=== PATIENT | male | born 1975 | race Caucasian/White ===

== ENCOUNTER 2018-09-15 22:14 | Inpatient (IN) | payer OTHER ==
[~2018-09-15] VITALS: Ht 175.3 cm; Wt 78.9 kg
[2018-09-15] MEDS ORDERED: LEVO125T5 PO (23:09)
--- NOTE | 2018-09-15 23:12 | NUR ---
REPORT TO MAGDALENE CAMP WHO ASSUMED CARE OF PT.
[2018-09-15 23:32] LABS: ALANINE AMINOTRANSFERASE 21 U/L (12-78); ALBUMIN 4.1 g/dL (3.4-5.0); ANION GAP 5 mmol/L (5-15); CALCIUM 8.6 mg/dL (8.5-10.1); CHLORIDE 108 mmol/L (98-107); CREATININE 1.07 mg/dL (0.7-1.3)
[2018-09-15 23:34] LABS: ALKALINE PHOSPHATASE 78 U/L (45-117); BILIRUBIN,TOTAL 0.6 mg/dL (0.2-1.0); TOTAL PROTEIN 7.4 g/dL (6.4-8.2)
[2018-09-15 23:36] LABS: BASOPHILS # (AUTO) 0.02 x10^3/uL (0-0.1); BASOPHILS % (AUTO) 0 % (0-1); EOSINOPHILS # (AUTO) 0.16 x10^3/uL (0-0.4); EOSINOPHILS % (AUTO) 2 % (1-7); LYMPHOCYTES # (AUTO) 2.64 x10^3/uL (1-3.4); LYMPHOCYTES % (AUTO) 37 % (22-44); MD NO; MEAN CORPUSCULAR HEMOGLOBIN 30.2 pg (27.5-34.5); MEAN CORPUSCULAR HGB CONC 33.8 g/dL (33.2-36.2); MEAN CORPUSCULAR VOLUME 89.3 fL (81-97); MEAN PLATELET VOLUME 8.2 fL (7.4-10.4); MONOCYTES # (AUTO) 0.58 x10^3/uL (0.2-0.8); MONOCYTES % (AUTO) 8 % (2-9); NEUTROPHILS # (AUTO) 3.77 x10^3/uL (1.8-6.8); NEUTROPHILS % (AUTO) 53 % (42-75); PLATELET COUNT 244 x10^3/uL (130-400); RED BLOOD COUNT 5.31 x10^6/uL (4.38-5.82); RED CELL DISTRIBUTION WIDTH 13.4 % (9.4-14.8)
--- NOTE | 2018-09-15 23:37 | NUR ---
CT PENDING LAB/CREATINE RESULT.
--- NOTE | 2018-09-15 23:54 | NUR ---
unable to give urine sample at this time.
--- NOTE | 2018-09-15 23:54 | NUR ---
patient to CT scan.
[2018-09-16] MEDS ORDERED: OMNIPAQUE 350 MG/ML, 100ML BOTTLE ONE
[2018-09-16] MEDS ORDERED: CEFOTETAN PMX 1GM/50ML 50 ML ONE (00:48)
[2018-09-16] MEDS ORDERED: CEFOTETAN PMX 1GM/50ML 50 ML IV ONE (01:00)
--- NOTE | 2018-09-16 01:00 | NUR ---
re-evaluation done. patient for surgery. antibiotic started.
[2018-09-16] MEDS ORDERED: BUPIVACAINE/PF-EPI 0.5% 1:200K ONE (01:01)
--- NOTE | 2018-09-16 01:14 | NUR ---
report to [employer].
[2018-09-16] MEDS ORDERED: FENTANYL PF 100 MCG/2ML ONE ×3 (01:18→03:32)
[2018-09-16] MEDS ORDERED: MIDAZOLAM 1 MG/ML, 2ML ONE (01:19)
[2018-09-16] MEDS ORDERED: ONDANSETRON 2MG/ML, 2ML IVPush PRN ×2 (01:30→05:30)
[2018-09-16] MEDS ORDERED: MORPHINE SULFATE 4 MG/ML, 1ML IVPush PRN ×2 (01:30→05:30)
[2018-09-16] MEDS ORDERED: ONDANSETRON 2MG/ML, 2ML ONE (01:37)
[2018-09-16] MEDS ORDERED: DEXAMETHASONE 4 MG/ML, 1ML ONE (01:37)
[2018-09-16] MEDS ORDERED: SUCCINYLCHOLINE 20 MG/ML, 10ML ONE (01:37)
[2018-09-16] MEDS ORDERED: ROCURONIUM 10MG/ML,5ML ONE (01:37)
[2018-09-16] MEDS ORDERED: PROPOFOL 10 MG/ML, 20ML ONE (01:37)
[2018-09-16] MEDS ORDERED: LORazepam 2 MG/ML, 1ML IVPush PRN (02:00)
[2018-09-16] MEDS ORDERED: HYDROmorphone 2 MG/ML, 1ML IVPush PRN (02:00)
[2018-09-16] MEDS ORDERED: ACETAMINOPHEN 325 MG TABLET PO PRN (02:00)
[2018-09-16] MEDS ORDERED: MEPERIDINE/PF 25MG/0.5ML IVPush PRN (02:00)
[2018-09-16] MEDS ORDERED: OXYcodone 5 MG/5 ML ORAL.SOL UDC PO PRN (02:00)
[2018-09-16] MEDS ORDERED: METOCLOPRAMIDE 5 MG/ML, 2ML IV PRN (02:00)
[2018-09-16] MEDS ORDERED: BUPIVACAINE/PF-EPI 0.5% 1:200K INFIL ONE (02:03)
[2018-09-16] MEDS ORDERED: SUGAMMADEX 200 MG/2 ML IVPush ONE (02:07)
[2018-09-16] MEDS: FENTANYL PF 100 MCG/2ML IV PRN ×3 (03:30→03:45)
[2018-09-16] MEDS ORDERED: OXYcodone 5 MG/5 ML ORAL.SOL UDC ONE (03:32)
[2018-09-16] MEDS ORDERED: OXYcodone/APAP 5/325MG TABLET PO PRN (05:30)
[2018-09-16] MEDS ORDERED: D5%-0.45NACL+KCL 20MEQ 1,000 ML IV SCH (05:30)
[2018-09-16] MEDS ORDERED: LEVOTHYROXINE 125 MCG TABLET PO SCH (06:00)
[2018-09-16 06:38] LABS: BASOPHILS # (AUTO) 0.02 x10^3/uL (0-0.1); BASOPHILS % (AUTO) 0 % (0-1); EOSINOPHILS # (AUTO) 0.01 x10^3/uL (0-0.4); EOSINOPHILS % (AUTO) 0 % (1-7); LYMPHOCYTES # (AUTO) 0.76 x10^3/uL (1-3.4); LYMPHOCYTES % (AUTO) 9 % (22-44); MD NO; MEAN CORPUSCULAR HEMOGLOBIN 31.2 pg (27.5-34.5); MEAN CORPUSCULAR HGB CONC 35.1 g/dL (33.2-36.2); MEAN CORPUSCULAR VOLUME 88.9 fL (81-97); MONOCYTES # (AUTO) 0.11 x10^3/uL (0.2-0.8); MONOCYTES % (AUTO) 1 % (2-9); NEUTROPHILS # (AUTO) 7.64 x10^3/uL (1.8-6.8); NEUTROPHILS % (AUTO) 89 % (42-75); PLATELET COUNT 219 x10^3/uL (130-400); RED BLOOD COUNT 4.94 x10^6/uL (4.38-5.82); RED CELL DISTRIBUTION WIDTH 12.9 % (9.4-14.8)
[2018-09-16 08:09] VITALS: BP 107/64
[2018-09-16 09:15] VITALS: BP 115/72
[2018-09-16] MEDS ORDERED: OXYC-302 PO (09:19)
== END 2018-09-16 10:00 | disposition home or self-care (01) | DRG 343 ==
LOC: ED 09-16 00:24 → EDIP 09-16 00:25 → UNDOADMIN 09-16 00:25 → EDIP 09-16 01:03 → 4NOR 09-16 04:10 → DCLOUNGE 09-16 09:45
PROVIDERS: ADMIT Surgery; ATTEND Surgery
PROC: 0DTJ4ZZ Resection of Appendix, Percutaneous Endoscopic Approach (ICD-10-PCS; principal; 2018-09-16 01:00)
DX: K35.80 Unspecified acute appendicitis (principal); E03.9 Hypothyroidism, unspecified; Z98.52 Vasectomy status; Z82.49 Family history of ischemic heart disease and other diseases of the circulatory system
CPT/HCPCS: 36415; 74177; 80053; 83690; 85025; 88304; 99285; J1100; J2250; J2405; J2704; J3010; Q9967; J0330; J3490